=== PATIENT | male | born 1960 | race Hispanic/Latino ===

== ENCOUNTER 2018-05-23 19:01 | Emergency (ER) | payer OTHER ==
[~2018-05-23] VITALS: Ht 177.8 cm; Wt 103.0 kg
[2018-05-23] MEDS ORDERED: POTASSIUM CHLORIDE 20 MEQ TAB CR PO STA (20:51)
--- NOTE | 2018-05-23 20:53 | Diagnostic Imaging Report ---
EXAMINATION: Head CT without contrast. HISTORY:Dizziness for 3 weeks. COMPARISON:None. TECHNIQUE: Multidetector axial images were obtained from the foramen magnum to the vertex without contrast. The images were reconstructed using brain and bone algorithms. Thin section brain images were reformatted into coronal and sagittal planes. Dose modulation, iterative reconstruction, and/or weight based adjustment of the mA/kV was utilized to reduce the radiation dose to as low as reasonably achievable. Intravenous contrast: None IMAGE QUALITY: Acceptable. FINDINGS: Skull/scalp: No lytic or blastic. lesions. No surgical changes. Parenchyma: Nonspecific few, scattered supratentorial white matter hypodensity are likely related to small vessel ischemic changes. No acute hemorrhage, mass or acute major vascular territorial infarct. Arteries: No density suggestive of thrombosis. Mild atherosclerotic calcification in bilateral carotid siphon. Dural sinuses: No abnormal density suggestive of thrombosis. Ventricles: No hydrocephalus or displacement. Extra-axial spaces: Incidental round, calcified lesion in the anterior aspect of the falx that approximately measures 1.7 x 2.1 x 1.6 cm without significant regional mass effect or surrounding edema possibly represents meningioma. Brain volume: Mild generalized cerebral volume loss. Craniocervical junction: No mass, Chiari malformation, or basilar invagination. Sella: No mass. Paranasal/mastoid sinuses: Mild mucosal thickening in bilateral ethmoid sinuses. IMPRESSION: 1. No acute intracranial abnormality, particularly no acute hemorrhage, mass or acute major vascular territorial infarct. 2. Mild generalized cerebral volume loss and mild supratentorial white matter microvascular ischemic changes. 3. Calcified 2.1 cm extra-axial lesion in the anterior falx, possibly represents a meningioma. Signed by: Dr. Janice Romero M.D. on 05/23/2018 8:50 PM
--- NOTE | 2018-05-23 21:55 | Diagnostic Imaging Report ---
CXR 1 VEW - HOPD, Technique: CXR 1 VEW - HOPD Comparison: None Clinical history: Dizziness DISCUSSION: Unremarkable portable of the heart, mediastinum, lungs and pleural spaces. IMPRESSION: No acute abnormality Signed by: Dr Crystal Chirinos MD on 05/23/2018 9:51 PM
[2018-05-24] MEDS ORDERED: MECLIZINE HCL 12.5 MG TAB PO ONE (00:30)
== END 2018-05-24 00:49 | disposition home or self-care (01) ==
LOC: FSED 19:01
DX: R42 Dizziness and giddiness (principal); I10 Essential (primary) hypertension; E87.6 Hypokalemia; K52.9 Noninfective gastroenteritis and colitis, unspecified; E11.9 Type 2 diabetes mellitus without complications
CPT/HCPCS: 70450; 71045; 80053; 80307; 81003; 82553; 83880; 84484; 85025; 85379; 85610; 93005; 99284

== ENCOUNTER → 2024-09-18 | Day surgery (SDC) | payer MEDICARE ==
[2024-09-17 13:12] LABS: BASOPHILS # (AUTO) 0.1 (0.0-0.1); BASOPHILS % 0.8 % (0.0-1.0); EOSINOPHILS # (AUTO) 0.3 (0.0-0.4); EOSINOPHILS % 4.2 % (0.0-6.0); HEMATOCRIT 43.8 % (38.2-49.6); HEMOGLOBIN 15.7 g/dL (14.0-18.0); LYMPHOCYTES % 30.2 % (18.0-39.1); MEAN CORPUSCULAR HEMOGLOBIN 30.7 pg (28-32); MEAN CORPUSCULAR HGB CONC 35.8 g/dL (31-35); MEAN CORPUSCULAR VOLUME 85.5 fL (81-99); MONOCYTES # (AUTO) 0.6 (0.2-0.8); MONOCYTES % 8.5 % (4.4-11.3); NEUTROPHILS # (AUTO) 3.6 (2.1-6.9); NEUTROPHILS % 55.8 % (38.7-80.0); PLATELET COUNT 249 x10e3/uL (140-360); RED BLOOD COUNT 5.12 x10e6/uL (4.3-5.7); RED CELL DISTRIBUTION WIDTH 12.7 % (11.7-14.4); WHITE BLOOD COUNT 6.45 x10e3/uL (4.8-10.8)
[2024-09-17 13:33] LABS: ANION GAP 11.5 mmol/L (8-16); CALCIUM 9.2 mg/dL (8.4-10.2); CREATININE, SERUM 0.87 mg/dL (0.72-1.25); POTASSIUM 3.5 mmol/L (3.5-5.1)
[~2024-09-18] MED LIST: ACETAMINOPHEN 1000 MG/100 ML 100 ML IV ONE; ACETAMINOPHEN 1000 MG/100 ML IV PRN; AMLODIPINE BESYL5 MG PO; ASPIRIN 325 MG TAB PO SCH; AVODART0.5 MG PO; BUPIVACAINE/EPI 0.5% 30ML SDV-MPF INJ ONE; CALCIUM ACETAT667 MG PO; CELECOXIB 100 MG CAP PO SCH; DEXAMETHASONE SOD PHOS INJ 4 MG/ML SDV ONE; DIGOXIN125 MCG PO; DIGOXIN250 MCG PO; DIPHENHYDRAMINE HCL INJ 50 MG/ML VIAL IV PRN; DOCUSATE SODIUM 100 MG CAP PO PRN; EPHEDRINE SULFATE INJ 50 MG/ML VIAL ONE; FARXIGA5 MG PO; FENTANYL CITRATE/PF 100MCG/2 ML INJ ONE; HYDROCODONE/APAP 5MG-325MG TAB PO PRN; HYDROCODONE/APAP 7.5MG-325MG 1 EA TAB PO PRN; LIDOCAINE HCL 2% LOCAL INJ 5 ML SDV VIAL INJ ONE; LIPITOR10 MG PO; METOPROLOL TART50 MG PO; MIDAZOLAM HCL 2 MG/2 ML VIAL ONE; ONDANSETRON HCL INJ 2MG/ML 2ML 2 MG/ML VIAL IV PRN; ONDANSETRON ODT4 MG PO; PANTOPRAZOLE SO40 MG PO; PEPCID20 MG PO; PHENYLEPHRINE HCL 1% 10 MG/ML VIAL ONE; POTASSIUM CHLO20 ME1 PO; PROPOFOL IV EMULSION 10 MG/ML 20 ML VIAL ONE; QUESTRAN PACKET4 GM PO; ROPIVACAINE/EPI/CLONIDINE/KET 50 ML SYRINGE INJ ONE; SODIUM CHLORIDE 0.9% 100 ML ONE; SODIUM CHLORIDE 0.9% 1000ML 1,000 ML IV SCH; WARFARIN SODIU2.5 MG PO; vit b12 PO
[2024-09-18] MEDS: DEXAMETHASONE SOD PHOS 10 MG/1 ML VIAL ONE (06:00)
[2024-09-18] MEDS: CELECOXIB 200 MG CAP ONE (06:00)
[2024-09-18] MEDS: GABAPENTIN 300 MG CAP ONE (06:00)
[2024-09-18] MEDS: CEFAZOLIN SODIUM 2 GM ONE (06:00)
[2024-09-18] MEDS: LACTATED RINGER'S 1,000 ML ONE (06:01)
[2024-09-18 07:05] LABS: INR 1.17; PROTHROMBIN TIME 15.6 seconds (11.9-14.5)
[2024-09-18 07:06] LABS: PARTIAL THROMBOPLASTIN TIME 32.6 seconds (23.8-35.5)
[2024-09-18] MEDS: METOPROLOL TARTRATE INJ 1 MG/ML VIAL ONE (10:04)
[2024-09-18] MEDS: FENTANYL CITRATE/PF 100MCG/2 ML INJ ONE (10:14)
[2024-09-18] MEDS: HYDROMORPHONE 1MG/1ML INJ ONE (10:56)
[2024-09-18 12:15] VITALS: BP 126/80; PULSE 87; RESP 16; O2SAT 98
== END | disposition home health service (06) ==
LOC: OR 05:42
PROVIDERS: ATTEND Specialist
DX: M17.11 Unilateral primary osteoarthritis, right knee (principal); E11.9 Type 2 diabetes mellitus without complications; I48.91 Unspecified atrial fibrillation; I49.5 Sick sinus syndrome; I10 Essential (primary) hypertension; E78.5 Hyperlipidemia, unspecified; K21.9 Gastro-esophageal reflux disease without esophagitis; Z01.810 Encounter for preprocedural cardiovascular examination; Z01.812 Encounter for preprocedural laboratory examination; Z79.84 Long term (current) use of oral hypoglycemic drugs; Z79.01 Long term (current) use of anticoagulants; Z79.899 Other long term (current) drug therapy; Z95.0 Presence of cardiac pacemaker
CPT/HCPCS: 27447; 36415 ×2; 73560; 80048; 85025; 85610; 85730; 86850; 86900; 93005; 97110; 97116; 97161; C1713 ×2; C1776 ×4; J0131; J0690; J1100 ×2; J1171; J2003; J2250; J2371; J2704; J3010; J7050; J7121